=== PATIENT | male | born 1960 ===

== ENCOUNTER 2022-05-07 10:36 | Inpatient (IN) | payer OTHER ==
[2022-05-07 11:29] VITALS: BMI 32.8
[2022-05-07] MEDS ORDERED: MAGNESIUM HYDROX 2400MG/30ML ORAL SUSPENSION 30 ML CUP PO PRN (11:43)
[2022-05-07] MEDS ORDERED: ACETAMINOPHEN 325 MG TABLET (FP) PO PRN (11:43)
[2022-05-07] MEDS ORDERED: IBUPROFEN 600 MG TABLET (FP) PO PRN (11:43)
[2022-05-07] MEDS ORDERED: BENZOCAINE/MENTHOL (CHLORASEPTIC ) LOZENGE MM PRN (11:43)
[2022-05-07] MEDS ORDERED: IBUPROFEN 400 MG TABLET (FP) PO PRN (11:43)
[2022-05-07] MEDS ORDERED: MAGNESIUM CITRATE 300 ML BOTTLE PO PRN (11:43)
[2022-05-07] MEDS ORDERED: DICYCLOMINE HCL 10 MG CAPSULE PO PRN (11:43)
[2022-05-07] MEDS ORDERED: MAG HYDROX/AL HYDROX/SIMETH 30 ML UNIT-DOSE CUP PO PRN (11:43)
[2022-05-07] MEDS ORDERED: ONDANSETRON *ODT* 4 MG TABLET SL PRN (11:43)
[2022-05-07] MEDS ORDERED: LORazepam 1 MG TABLET PO PRN (11:43)
[2022-05-07] MEDS ORDERED: LOPERAMIDE HCL 2 MG CAPSULE PO PRN (11:43)
[2022-05-07] MEDS ORDERED: IBUPROFEN 400 MG TABLET (FP) PO ONE (13:25)
[2022-05-07] MEDS: TAMSULOSIN HCL 0.4 MG CAP PO SCH (13:45)
[2022-05-07] MEDS: METHOCARBAMOL 500 MG TABLET PO PRN (14:59)
[2022-05-07] MEDS: hydrOXYzine PAMOATE 25 MG CAPSULE (FP) PO PRN (14:59)
[2022-05-07] MEDS: LORazepam 2 MG TABLET PO SCH ×2 (18:03→22:06)
[2022-05-07] MEDS: ACETAMINOPHEN 325 MG TABLET (FP) PO PRN (18:04)
[2022-05-07] MEDS: LOSARTAN POTASSIUM 50 MG TABLET PO SCH (18:06)
[2022-05-07] MEDS: BISMUTH SUBSALICYLATE 524 MG/30 ML PO PRN (19:30)
[2022-05-07] MEDS ORDERED: MELATONIN 5 MG TABLETS PO SCH (22:00)
[2022-05-07] MEDS: THIAMINE HCL 100 MG TABLET (FP) PO SCH (22:06)
[2022-05-08] MEDS: LORazepam 2 MG TABLET PO SCH ×4 (05:52→22:09)
[2022-05-08] MEDS ORDERED: FLU VACC QS2022-23(6MOS UP)/PF 60 MCG/0.5 ML SYRINGE IM ONE ×2 (10:00→12:00)
[2022-05-08] MEDS: TAMSULOSIN HCL 0.4 MG CAP PO SCH (10:52)
[2022-05-08] MEDS: PRENATAL VITAMINS W/ FOLIC ACID TABLET (FP) PO SCH (10:52)
[2022-05-08] MEDS: LOSARTAN POTASSIUM 50 MG TABLET PO SCH (10:52)
[2022-05-08] MEDS: ACETAMINOPHEN 325 MG TABLET (FP) PO PRN (11:58)
[2022-05-08] MEDS: THIAMINE HCL 100 MG TABLET (FP) PO SCH (22:09)
[2022-05-08] MEDS: MELATONIN 5 MG TABLETS PO SCH (22:09)
[2022-05-09] MEDS: LORazepam 1 MG TABLET PO SCH ×4 (05:25→22:03)
[2022-05-09] MEDS: TAMSULOSIN HCL 0.4 MG CAP PO SCH (10:21)
[2022-05-09] MEDS: PRENATAL VITAMINS W/ FOLIC ACID TABLET (FP) PO SCH (10:21)
[2022-05-09] MEDS: LOSARTAN POTASSIUM 50 MG TABLET PO SCH (10:21)
[2022-05-09 10:35] LABS: HEMATOCRIT 40.4 % (35.4-49); HEMOGLOBIN 13.4 GM/dL (11.7-16.9); MCH 33.6 pg (25.7-33.7); MCHC 33.2 g/dl (32.0-35.9); MEAN CELL VOLUME 101.3 fl (80-96); MEAN PLT VOLUME 8.4 fl (7.5-11.1); PLATELET COUNT 258 10^3/uL (134-434); RBC 3.99 M/mm3 (4.00-5.60); WHITE BLOOD COUNT 5.6 K/mm3 (4.0-10.0)
[2022-05-09 10:39] LABS: CALCIUM 9.8 mg/dL (8.5-10.1)
[2022-05-09 10:40] LABS: ALBUMIN 3.8 g/dl (3.4-5.0); BLOOD UREA NITROGEN 12.6 mg/dL (7-18)
[2022-05-09 10:44] LABS: BILIRUBIN,TOTAL 2.1 mg/dL (0.2-1)
[2022-05-09 10:45] LABS: TOT PROT 7.3 g/dl (6.4-8.2)
[2022-05-09] MEDS: BISMUTH SUBSALICYLATE 524 MG/30 ML PO PRN (19:55)
[2022-05-09] MEDS: MELATONIN 5 MG TABLETS PO SCH (22:02)
[2022-05-09] MEDS: THIAMINE HCL 100 MG TABLET (FP) PO SCH (22:03)
[2022-05-09] MEDS: hydrOXYzine PAMOATE 25 MG CAPSULE (FP) PO PRN (22:04)
[2022-05-09] MEDS: METHOCARBAMOL 500 MG TABLET PO PRN (22:04)
[2022-05-10] MEDS ORDERED: LORazepam 0.5 MG TABLET PO PRN
[2022-05-10] MEDS: LORazepam 0.5 MG TABLET PO SCH ×4 (05:37→22:06)
[2022-05-10] MEDS: LOSARTAN POTASSIUM 50 MG TABLET PO SCH (10:30)
[2022-05-10] MEDS: TAMSULOSIN HCL 0.4 MG CAP PO SCH (10:30)
[2022-05-10] MEDS: PRENATAL VITAMINS W/ FOLIC ACID TABLET (FP) PO SCH (10:30)
[2022-05-10 13:09] LABS: ALBUMIN 3.2 g/dl (3.4-5.0)
[2022-05-10 13:12] LABS: BILIRUBIN,DIRECT 0.3 mg/dL (0.0-0.2)
[2022-05-10 13:14] LABS: BILIRUBIN,TOTAL 1.1 mg/dL (0.2-1); TOT PROT 6.2 g/dl (6.4-8.2)
[2022-05-10] MEDS: THIAMINE HCL 100 MG TABLET (FP) PO SCH (22:06)
[2022-05-10] MEDS: MELATONIN 5 MG TABLETS PO SCH (22:07)
[2022-05-10] MEDS: ACETAMINOPHEN 325 MG TABLET (FP) PO PRN (23:09)
[2022-05-11] MEDS ORDERED: LORazepam 0.5 MG TABLET PO ONE (05:00)
[2022-05-11 08:51] VITALS: BP 135/82; PULSE 77; RESP 18; TEMP 98.3
[2022-05-11] MEDS: PRENATAL VITAMINS W/ FOLIC ACID TABLET (FP) PO SCH (09:19)
[2022-05-11] MEDS: TAMSULOSIN HCL 0.4 MG CAP PO SCH (09:19)
[2022-05-11] MEDS: LOSARTAN POTASSIUM 50 MG TABLET PO SCH (09:19)
== END 2022-05-11 09:21 | disposition home or self-care (01) | DRG 897 ==
LOC: YASAS 10:36 → Y3N 11:51
PROVIDERS: ADMIT Allergy & Immunology; ATTEND Surgery
PROC: HZ2ZZZZ Detoxification Services for Substance Abuse Treatment (ICD-10-PCS; principal; 2022-05-07)
DX: F10.230 Alcohol dependence with withdrawal, uncomplicated (principal); F10.24 Alcohol dependence with alcohol-induced mood disorder; F41.9 Anxiety disorder, unspecified; F32.A Depression, unspecified; E78.5 Hyperlipidemia, unspecified; I10 Essential (primary) hypertension; R26.89 Other abnormalities of gait and mobility; R74.8 Abnormal levels of other serum enzymes; Z87.01 Personal history of pneumonia (recurrent); Z87.19 Personal history of other diseases of the digestive system; Z91.410 Personal history of adult physical and sexual abuse
CPT/HCPCS: 36415; 71046-TC-FY; 80053; 80076; 85027; 86780; C9803-CS; G0008; Q2036; U0003; U0005

== ENCOUNTER 2022-08-25 11:51 | Inpatient (IN) | payer OTHER ==
[2022-08-25 12:34] VITALS: BMI 33.7
[2022-08-25] MEDS ORDERED: hydrOXYzine PAMOATE 25 MG CAPSULE (FP) PO PRN (14:30)
[2022-08-25] MEDS ORDERED: MAGNESIUM HYDROX 2400MG/30ML ORAL SUSPENSION 30 ML CUP PO PRN (14:30)
[2022-08-25] MEDS ORDERED: POLYETHYLENE GLYCOL (HEALTHYLAX) 3350 17 GM PACKET PO PRN (14:30)
[2022-08-25] MEDS ORDERED: MAG HYDROX/AL HYDROX/SIMETH 30 ML UNIT-DOSE CUP PO PRN (14:30)
[2022-08-25] MEDS ORDERED: BISMUTH SUBSALICYLATE 524 MG/30 ML PO PRN (14:30)
[2022-08-25] MEDS ORDERED: ACETAMINOPHEN 325 MG TABLET (FP) PO PRN (14:30)
[2022-08-25] MEDS ORDERED: LORazepam 1 MG TABLET PO PRN (14:30)
[2022-08-25] MEDS ORDERED: IBUPROFEN 400 MG TABLET (FP) PO PRN (14:30)
[2022-08-25] MEDS ORDERED: DICYCLOMINE HCL 10 MG CAPSULE PO PRN (14:30)
[2022-08-25] MEDS ORDERED: NICOTINE 10 MG CARTRIDGE (INHALER) IH PRN (14:30)
[2022-08-25] MEDS ORDERED: NALOXONE HCL (KLOXXADO) 8 MG SPRAY NS PRN (14:30)
[2022-08-25] MEDS ORDERED: BENZOCAINE/MENTHOL (CHLORASEPTIC ) LOZENGE MM PRN (14:30)
[2022-08-25] MEDS ORDERED: METHOCARBAMOL 500 MG TABLET PO PRN (14:30)
[2022-08-25] MEDS ORDERED: ONDANSETRON *ODT* 4 MG TABLET SL PRN (14:30)
[2022-08-25] MEDS ORDERED: LOPERAMIDE HCL 2 MG CAPSULE PO PRN (14:30)
[2022-08-25] MEDS ORDERED: HYDROCORTISONE 1% TOPICAL CREAM 30 GM TUBE TP PRN (14:33)
[2022-08-25] MEDS ORDERED: LORazepam 2 MG TABLET PO ONE (15:00)
[2022-08-25] MEDS: PRENATAL VITAMINS W/ FOLIC ACID TABLET (FP) PO SCH (17:15)
[2022-08-25] MEDS: NICOTINE 14 MG/24 HOURS TOPICAL PATCH TD SCH (17:15)
[2022-08-25] MEDS: LORazepam 2 MG TABLET PO SCH ×2 (17:16→22:26)
[2022-08-25] MEDS ORDERED: LOSARTAN POTASSIUM 25 MG TABLET PO SCH (18:00)
[2022-08-25] MEDS: THIAMINE HCL 100 MG TABLET (FP) PO SCH (22:26)
[2022-08-25] MEDS: MELATONIN 5 MG TABLETS PO SCH (22:26)
[2022-08-26] MEDS: LORazepam 2 MG TABLET PO SCH ×4 (05:55→22:39)
[2022-08-26 10:46] LABS: HEMATOCRIT 38.1 % (35.4-49); MCH 31.5 pg (25.7-33.7); MEAN CELL VOLUME 92.7 fl (80-96); MEAN PLT VOLUME 9.4 fl (7.5-11.1); PLATELET COUNT 110 10^3/uL (134-434); RBC 4.11 M/mm3 (4.00-5.60); RDW 13.3 % (11.9-15.9); WHITE BLOOD COUNT 4.7 K/mm3 (4.0-10.0)
[2022-08-26 10:51] LABS: CHLORIDE 100 mmol/L (98-107); SODIUM 137 mmol/L (136-145)
[2022-08-26] MEDS: TAMSULOSIN HCL 0.4 MG CAP PO SCH (10:54)
[2022-08-26] MEDS: PRENATAL VITAMINS W/ FOLIC ACID TABLET (FP) PO SCH (10:54)
[2022-08-26 10:55] LABS: ALBUMIN 3.4 g/dl (3.4-5.0); BLOOD UREA NITROGEN 11.9 mg/dL (7-18); CO2 29 mmol/L (21-32); GLUCOSE,RANDOM 162 mg/dL (74-106)
[2022-08-26] MEDS: NICOTINE 14 MG/24 HOURS TOPICAL PATCH TD SCH (10:55)
[2022-08-26] MEDS: LOSARTAN POTASSIUM 25 MG TABLET PO SCH (10:55)
[2022-08-26] MEDS: IBUPROFEN 600 MG TABLET (FP) PO PRN ×2 (10:56→22:41)
[2022-08-26 10:59] LABS: SGOT/AST 64 U/L (15-37); SGPT/ALT 39 U/L (13-61)
[2022-08-26 11:00] LABS: BILIRUBIN,TOTAL 1.3 mg/dL (0.2-1); TOT PROT 6.5 g/dl (6.4-8.2)
[2022-08-26 11:01] LABS: ALK PHOS 77 U/L (45-117)
[2022-08-26 11:18] LABS: ANION GAP 8 MMOL/L (8-16)
[2022-08-26] MEDS ORDERED: POTASSIUM CHLORIDE ORAL LIQUID 20 MEQ/15 ML PO ONE (11:34)
[2022-08-26] MEDS: LACTULOSE 20 GM/30 ML UDC (FOR ORAL USE ONLY) PO SCH ×2 (13:52→22:39)
[2022-08-26] MEDS: ACETAMINOPHEN 325 MG TABLET (FP) PO PRN (17:30)
[2022-08-26] MEDS: MELATONIN 5 MG TABLETS PO SCH (22:39)
[2022-08-26] MEDS: POTASSIUM CHLORIDE ORAL LIQUID 20 MEQ/15 ML PO SCH (22:39)
[2022-08-26] MEDS: THIAMINE HCL 100 MG TABLET (FP) PO SCH (22:39)
[2022-08-26] MEDS: GABAPENTIN 100 MG CAPSULE PO SCH (22:39)
[2022-08-27] MEDS: GABAPENTIN 100 MG CAPSULE PO SCH ×3 (05:35→22:06)
[2022-08-27] MEDS: LACTULOSE 20 GM/30 ML UDC (FOR ORAL USE ONLY) PO SCH ×3 (05:35→22:06)
[2022-08-27] MEDS: LORazepam 1 MG TABLET PO SCH ×4 (05:35→22:06)
[2022-08-27] MEDS: POTASSIUM CHLORIDE ORAL LIQUID 20 MEQ/15 ML PO SCH ×2 (12:46→22:06)
[2022-08-27] MEDS: PRENATAL VITAMINS W/ FOLIC ACID TABLET (FP) PO SCH (12:46)
[2022-08-27] MEDS: TAMSULOSIN HCL 0.4 MG CAP PO SCH (12:47)
[2022-08-27] MEDS: NICOTINE 14 MG/24 HOURS TOPICAL PATCH TD SCH (12:50)
[2022-08-27] MEDS: LOSARTAN POTASSIUM 25 MG TABLET PO SCH (12:50)
[2022-08-27] MEDS: THIAMINE HCL 100 MG TABLET (FP) PO SCH (22:06)
[2022-08-27] MEDS: MELATONIN 5 MG TABLETS PO SCH (22:06)
[2022-08-27] MEDS: ACETAMINOPHEN 325 MG TABLET (FP) PO PRN (22:08)
[2022-08-28] MEDS ORDERED: LORazepam 0.5 MG TABLET PO PRN
[2022-08-28] MEDS: LACTULOSE 20 GM/30 ML UDC (FOR ORAL USE ONLY) PO SCH ×3 (05:43→22:11)
[2022-08-28] MEDS: GABAPENTIN 100 MG CAPSULE PO SCH ×3 (05:44→22:11)
[2022-08-28] MEDS: LORazepam 0.5 MG TABLET PO SCH ×4 (05:44→22:12)
[2022-08-28] MEDS: PRENATAL VITAMINS W/ FOLIC ACID TABLET (FP) PO SCH (10:54)
[2022-08-28] MEDS: TAMSULOSIN HCL 0.4 MG CAP PO SCH (10:54)
[2022-08-28] MEDS: LOSARTAN POTASSIUM 25 MG TABLET PO SCH (10:55)
[2022-08-28] MEDS: NICOTINE 14 MG/24 HOURS TOPICAL PATCH TD SCH (10:55)
[2022-08-28] MEDS: ACETAMINOPHEN 325 MG TABLET (FP) PO PRN (22:12)
[2022-08-28] MEDS: THIAMINE HCL 100 MG TABLET (FP) PO SCH (22:12)
[2022-08-28] MEDS: MELATONIN 5 MG TABLETS PO SCH (22:12)
[2022-08-29] MEDS ORDERED: LORazepam 0.5 MG TABLET PO ONE (05:00)
[2022-08-29] MEDS: GABAPENTIN 100 MG CAPSULE PO SCH ×3 (05:43→22:04)
[2022-08-29] MEDS: LACTULOSE 20 GM/30 ML UDC (FOR ORAL USE ONLY) PO SCH ×3 (05:43→22:04)
[2022-08-29] MEDS ORDERED: POTASSIUM CHLORIDE ORAL LIQUID 20 MEQ/15 ML PO ONE (10:15)
[2022-08-29] MEDS: LOSARTAN POTASSIUM 25 MG TABLET PO SCH (10:49)
[2022-08-29] MEDS: NICOTINE 14 MG/24 HOURS TOPICAL PATCH TD SCH (10:49)
[2022-08-29] MEDS: TAMSULOSIN HCL 0.4 MG CAP PO SCH (10:49)
[2022-08-29] MEDS: PRENATAL VITAMINS W/ FOLIC ACID TABLET (FP) PO SCH (10:49)
[2022-08-29] MEDS: IBUPROFEN 600 MG TABLET (FP) PO PRN (18:01)
[2022-08-29] MEDS: MELATONIN 5 MG TABLETS PO SCH (22:05)
[2022-08-29] MEDS: THIAMINE HCL 100 MG TABLET (FP) PO SCH (22:05)
[2022-08-30] MEDS: GABAPENTIN 100 MG CAPSULE PO SCH (05:07)
[2022-08-30] MEDS: LACTULOSE 20 GM/30 ML UDC (FOR ORAL USE ONLY) PO SCH (05:08)
[2022-08-30 10:09] VITALS: BP 104/67; PULSE 102; RESP 17
[2022-08-30] MEDS: NICOTINE 14 MG/24 HOURS TOPICAL PATCH TD SCH (10:30)
[2022-08-30] MEDS: TAMSULOSIN HCL 0.4 MG CAP PO SCH (10:30)
[2022-08-30] MEDS: LOSARTAN POTASSIUM 25 MG TABLET PO SCH (10:30)
[2022-08-30] MEDS: PRENATAL VITAMINS W/ FOLIC ACID TABLET (FP) PO SCH (10:31)
[2022-08-30 12:05] VITALS: TEMP 98.7
== END 2022-08-30 09:35 | disposition home or self-care (01) | DRG 897 ==
LOC: YASAS 11:51 → Y3N 14:36
PROVIDERS: ADMIT Allergy & Immunology; ATTEND Surgery
PROC: HZ2ZZZZ Detoxification Services for Substance Abuse Treatment (ICD-10-PCS; principal; 2022-08-25)
DX: F10.230 Alcohol dependence with withdrawal, uncomplicated (principal); E72.20 Disorder of urea cycle metabolism, unspecified; F10.24 Alcohol dependence with alcohol-induced mood disorder; F41.9 Anxiety disorder, unspecified; F32.A Depression, unspecified; F43.10 Post-traumatic stress disorder, unspecified; E87.6 Hypokalemia; I10 Essential (primary) hypertension; N40.0 Benign prostatic hyperplasia without lower urinary tract symptoms; R32 Unspecified urinary incontinence; Z87.19 Personal history of other diseases of the digestive system; Z87.891 Personal history of nicotine dependence; Z91.410 Personal history of adult physical and sexual abuse
CPT/HCPCS: 36415; 80053; 82140; 83036; 84132; 85027; 86780; 87811; C9803-CS; U0003; U0005